=== PATIENT | female | born 1935 | race African-American/Black ===

== ENCOUNTER 2024-01-27 08:08 | Day surgery (SDC) | payer MEDICARE, SELFPAY ==
[2024-01-27] VITALS (9 sets, daily range): BP systolic 132–153; BP diastolic 54–112; BMI 24.1
[2024-01-27] MEDS: BACTROBAN NASAL 1 GRAM NASAL (08:38)
[2024-01-27] MEDS: NSS 500 IV (08:39)
[2024-01-27 08:51] LABS: Hematocrit 36.2 % (37.0-47.0); Hemoglobin 12.1 g/dL (12.0-16.0); Mean Corp Hgb Conc. 33.4 g/dL (33.0-37.0); Mean Corpuscular Hgb 30.2 pg (27.0-31.0); Mean Corpuscular Volume 90.3 fL (81.0-99.0); Mean Platelet Volume 12.4 fL (7.4-10.4); Platelet Count 169 10^3/uL (130-400); Red Blood Cell Count 4.01 10^6/uL (4.20-5.40); White Blood Cell Count 7.2 10^3/uL (4.8-10.8)
[2024-01-27 08:57] LABS: APTT 38.6 Sec (23.4-35.0); INR 1.09; PT 14.7 Sec (11.4-14.6)
[2024-01-27 09:36] LABS: Blood Urea Nitrogen 53 mg/dl (7-17); Calcium 9.3 mg/dl (8.4-10.2); Carbon Dioxide 22 mmol/L (22-30); Chloride 105 mmol/L (98-107); Estimated Creatinine Clearance 5 ml/min; Glucose 75 mg/dl (70-99); Potassium 4.7 mmol/L (3.5-5.1); Sodium 144 mmol/L (135-145)
--- NOTE | 2024-01-27 09:39 | W.SUR.PREOP ---
Pre-Operative Surgical Note
-
I have examined this patient prior to the performance of the scheduled procedure.
The patient's condition is unchanged from the time of the current History and
Physical and the patient is able to undergo the scheduled procedure.
--- NOTE | 2024-01-27 11:28 | W.SUR.POST ---
Surgical Immediate Post Op
Note
Pre Op Diagnosis: End-stage renal disease
Post Op Diagnosis: Same
Procedure Performed: Right upper extremity AV graft
Primary Surgeon: Wiliam
Assist: Nicolas BRAY
Anesthesia: General
Estimated Blood Loss: 5 cc
Fluids: See anesthesia flowsheet
Drains/Shunts: None
Specimens/Cultures: None
Doppler/Duplex/Angio (Y/N): Y
Complications: None
Operative Findings: + Thrill
--- NOTE | 2024-01-27 11:35 | OR.RPT ---
Operative Report
Operative Report
PROCEDURE DATE: 01/27/2024
Preoperative diagnosis: End-stage renal disease on hemodialysis.
Postoperative diagnosis: Same
Procedure: Right upper extremity arteriovenous graft placement upper arm (brachial/axillary) with tapered 7mm x 4mm [place] Propaten graft.
Surgeon: Wiliam
Institutional Research Coordinator: Suri Valenzuela [employer], required for all aspects of procedure including assistance with traction/countertraction, following a suture line, assistance with closure.
Complications: None
Anesthesia: General
Indications for procedure:
End-stage renal disease on hemodialysis. Left-sided defibrillator/pacemaker in place. Therefore discussed right sided AV fistula or graft creation. Vein mapping had demonstrated what appeared to be small superficial veins in the upper extremity.
Intraoperative vein mapping performed by myself confirmed lack of suitability of veins except for forearm cephalic vein (but radial artery with circumferential plaque, and I did not feel was a good inflow source). Risk/benefits/alternatives fully
discussed with patient. She understood all wished to proceed.
Description of procedure:
Patient was identified brought to the operating room placed on the table in supine position. After the adequate administration of anesthesia she was prepped and draped in the standard surgical fashion. A standard preoperative timeout was
undertaken and everybody was in agreement the plan. A standard longitudinal incision was made in the distal medial upper arm that was carried through the skin subcutaneous tissue. I dissected through the fascial layer and then identify the
brachial artery carefully dissected away from surrounding structures to great care to avoid any injury to the structures. I passed a vessel loop around it proximally and distally which was double looped but not yet tightened. Now I made an
incision in the medial proximal upper arm approaching the axilla. This was carried through the skin subcutaneous tissue and then through the fascial layer. Identified the axillary vein (brachial vein extending into the axillary vein). This is
carefully dissected away from surrounding structures to great care to avoid injury to structures. I passed a vessel loop around it proximally and distally. In addition a confluent branch posteriorly was controlled with the vessel loop as well.
At this point I created a subcutaneous tunnel between the 2 incision sites using a Anupama tunneler and then passed a [place] Propaten tapered 7 mm x 4 mm graft. The 4 mm end was positioned at the arterial site (distal incision).
The patient was then given 3000 units of intravenous heparin. I then tightened my double looped Vesseloops on the artery proximally and distally. I made an arteriotomy with an 11 blade and extended it using a Bah scissor. I then beveled the 4
mm end of the graft and sewed an end-to-side anastomosis to the artery with [place] CV 6 suture running fashion. I completed and tied in my suture line. I then placed a graft clamp on the graft and then released my Vesseloops on the artery. There
was good pulsatile flow into the graft. At this point I turned my attention to the venous side/proximal arm incision. I double looped and tightened my Vesseloops on the vein proximally distally. I then made a venotomy with an 11 blade and
extended using a Bah scissor. I then trimmed and beveled the 7 mm end of the graft and sewed an end-to-side anastomosis using a running [place] CV 6 suture. Prior to completing and tying down my suture line I backbled the [place] veins, and I
flushed out the graft. I then completed and tied down my suture line. I then released the Vesseloops on the vein and released my graft clamp. There is now a good thrill in the graft. Doppler confirmed this. There is good flow to the hand with a
good Doppler radial signal. At this point is very satisfied. I irrigated and achieved/confirmed full hemostasis at both incision sites. We then closed in layers using 3-0 Vicryl running deep dermal layer followed by 4 Monocryl running
subcuticular stitch. Dermabond was applied. The patient tolerated procedure well.
== END 2024-01-27 13:51 | disposition home or self-care (01) ==
LOC: CATH 08:08
PROVIDERS: ATTENDING PHYSICIAN Surgery Vascular Surgery; FAMILY PHYSICIAN Internal Medicine; OTHER PHYSICIAN Internal Medicine Clinical Cardiac Electrophysiology
DX: I12.0 Hypertensive chronic kidney disease with stage 5 chronic kidney disease or end stage renal disease (principal); N18.6 End stage renal disease; Z99.2 Dependence on renal dialysis; E03.9 Hypothyroidism, unspecified; I44.2 Atrioventricular block, complete; I48.91 Unspecified atrial fibrillation; Z79.82 Long term (current) use of aspirin; Z79.890 Hormone replacement therapy; Z79.899 Other long term (current) drug therapy; Z01.810 Encounter for preprocedural cardiovascular examination; Z88.2 Allergy status to sulfonamides; Z95.0 Presence of cardiac pacemaker; I49.1 Atrial premature depolarization; Z88.1 Allergy status to other antibiotic agents
CPT/HCPCS: 36830; 80048; 85027; 85610; 85730; 86850; 86900; 86901; 93005; C1768

== ENCOUNTER → 2024-06-28 07:30 | Outpatient (REF) | payer MEDICARE, SELFPAY | LOC: RAD 07:30 | PROVIDERS: ATTENDING PHYSICIAN Surgery Vascular Surgery; FAMILY PHYSICIAN Internal Medicine | DX: Z99.2 Dependence on renal dialysis (principal); L98.8 Other specified disorders of the skin and subcutaneous tissue; Z01.818 Encounter for other preprocedural examination | CPT/HCPCS: 93990 ==

== ENCOUNTER → 2024-09-21 06:51 | Outpatient (REF) | payer MEDICARE, SELFPAY | LOC: RAD 06:51 | PROVIDERS: ATTENDING PHYSICIAN Surgery Vascular Surgery; FAMILY PHYSICIAN Internal Medicine | DX: L98.8 Other specified disorders of the skin and subcutaneous tissue (principal) | CPT/HCPCS: 93990 ==

== ENCOUNTER → 2024-12-27 08:28 | Outpatient (REF) | payer MEDICARE, SELFPAY | LOC: RAD 08:28 | PROVIDERS: ATTENDING PHYSICIAN Surgery Vascular Surgery; FAMILY PHYSICIAN Internal Medicine | DX: N18.6 End stage renal disease (principal); Z99.2 Dependence on renal dialysis | CPT/HCPCS: 93990 ==